=== PATIENT | female | born 1945 | race Hispanic/Latino ===

== ENCOUNTER 2018-04-22 07:31 | Inpatient (IN) | payer MEDICARE ==
[~2018-04-22] VITALS: Ht 154.9 cm; Wt 49.5 kg
[~2018-04-22 07:31] MED LIST: AMOXICILLIN500 M1 PO; ANASTROZOLE1 MG PO; LEVOTHYROXINE50 MCG PO; LOSARTAN-HCTZ1 EAC2 PO; METOPROLOL SUC100 MG PO; OXAPROZIN600 MG PO; SIMVASTATIN40 MG PO
[2018-04-22] MEDS ORDERED: SODIUM CHLORIDE 0.9% 1000ML 1,000 ML IV STA (07:56)
[2018-04-22] MEDS ORDERED: ASPIRIN 81 MG CHEW TAB PO ONE (08:00)
[2018-04-22 08:12] LABS: BASOPHILS % 0.3 % (0.0-1.0); EOSINOPHILS # (AUTO) 0.1 (0.0-0.4); EOSINOPHILS % 0.8 % (0.0-6.0); HEMATOCRIT 38.8 % (34.2-44.1); HEMOGLOBIN 12.8 g/dL (12.0-16.0); LYMPHOCYTES # (AUTO) 0.9 (1.0-3.2); LYMPHOCYTES % 8.5 % (18.0-39.1); MEAN CORPUSCULAR HEMOGLOBIN 32.2 pg (28-32); MEAN CORPUSCULAR VOLUME 97.7 fL (81-99); MONOCYTES # (AUTO) 1.4 (0.2-0.8); MONOCYTES % 13.1 % (4.4-11.3); NEUTROPHILS # (AUTO) 8.3 (2.1-6.9); PLATELET COUNT 156 x10e3/uL (140-360); RED BLOOD COUNT 3.97 x10e6/uL (3.6-5.1); RED CELL DISTRIBUTION WIDTH 13.2 % (11.7-14.4)
[2018-04-22 08:19] LABS: INR 1.27; PARTIAL THROMBOPLASTIN TIME 28.4 seconds (23.8-35.5); PROTHROMBIN TIME 14.9 seconds (11.9-14.5)
[2018-04-22 08:29] LABS: ALANINE AMINOTRANSFERASE 33 IU/L (0-55); ALBUMIN 3.5 g/dL (3.5-5.0); ALBUMIN/GLOBULIN RATIO 1.2 (0.8-2.0); ALKALINE PHOSPHATASE 99 IU/L (40-150); AMYLASE 52 U/L (25-125); ANION GAP 11.3 mmol/L (8-16); BLOOD UREA NITROGEN 16 mg/dL (7-26); BUN/CREATININE RATIO 17 (6-25); CALCIUM 9.5 mg/dL (8.4-10.2); CARBON DIOXIDE 30 mmol/L (22-29); CHLORIDE 99 mmol/L (98-107); CREATINE KINASE 60 IU/L (29-168); CREATININE, SERUM 0.95 mg/dL (0.57-1.11); EST GLOMERULAR FILTRATION RATE 58 ML/MIN (60-); GLUCOSE 128 mg/dL (74-118); LIPASE 13 U/L (8-78); POTASSIUM 3.3 mmol/L (3.5-5.1); SODIUM 137 mmol/L (136-145)
--- NOTE | 2018-04-22 08:52 | Diagnostic Imaging Report ---
PROCEDURE:GALLBLADDER ULTRASOUND COMPARISON:None. INDICATION:RUQ Pain TECHNIQUE:Jaramillo scale color Doppler ultrasound gallbladder FINDINGS: Right liver span 15.1 cm. Normal echogenicity. Portal vein diameter 0.7 cm; normal flow direction. Distended gallbladder containing calcified stones and sludge. Wall thickness 0.4 cm. Common bile duct diameter 0.5 cm. Equivocal sonographic Alcaraz sign given pain throughout the procedure. CONCLUSION: Mild gallbladder wall thickening in the setting of stones and sludge, in addition to right upper quadrant pain, is suspicious for early acute cholecystitis. Dictated by: lEkin Russ M.D. on 04/22/2018 at 8:54 Electronically approved by: Elkin Russ M.D. on 04/22/2018 at 8:54
[2018-04-22 09:26] LABS: CLARITY,URINE CLOUDY (CLEAR); COLOR,URINE AMBER (YELLOW)
[2018-04-22 09:27] LABS: BILIRUBIN,URINE 1+ (NEGATIVE); KETONES,URINE NEGATIVE (NEGATIVE); LEUKOCYTE ESTERASE ,URINE 2+ (NEGATIVE); NITRITE,URINE POSITIVE (NEGATIVE); PROTEIN,URINE DIPSTICK 1+ (NEGATIVE); URINE UROBILINOGEN 1 mg/dL (0.2 - 1)
[2018-04-22 09:33] LABS: BACTERIA,URINE MODERATE /HPF; EPITHELIAL CELLS,URINE RARE /LPF; RBC,URINE 0-5 /HPF (0-5)
[2018-04-22] MEDS ORDERED: FENTANYL CITRATE/PF 100MCG/2 ML INJ IV ONE ×2 (10:00→10:30)
[2018-04-22] MEDS ORDERED: PIPER-TAZ 3.375 GM 50 ML IV ONE (10:00)
[2018-04-22] MEDS: SODIUM CHLORIDE 0.9% 1000ML 1,000 ML IV SCH ×2 (10:27→21:08)
[2018-04-22] MEDS ORDERED: IBUPROFEN400 MG PO (10:57)
[2018-04-22] MEDS ORDERED: NORCO 5-325 TA1 EACH PO (10:59)
[2018-04-22 11:29] VITALS: BP 165/70
[2018-04-22 11:54] VITALS: BP 165/70
[2018-04-22] MEDS: ONDANSETRON HCL INJ 2 MG/ML VIAL IV PRN ×2 (12:27→20:50)
[2018-04-22] MEDS ORDERED: PIPER-TAZ 3.375 GM / NS 50ML IV SCH (14:00)
[2018-04-22 16:00] VITALS: BP 132/62
[2018-04-22] MEDS: PIPER-TAZ 3.375 GM 50 ML IV SCH (18:48)
[2018-04-22 20:00] VITALS: BP 149/65
[2018-04-22] MEDS: HYDROMORPHONE 1MG/1ML INJ IV PRN (20:50)
[2018-04-22 21:00] VITALS: BP 115/56
--- NOTE | 2018-04-22 23:08 | History and Physical ---
DATE OF SERVICE: April 22, 2018 TIME: 2:50 p.m. PRIMARY CARE PHYSICIAN: Dr. Stevenson ONCOLOGIST: Dr. Howard CHIEF COMPLAINT: Abdominal pain, nausea, and vomiting. HISTORY OF PRESENT ILLNESS: This is a 73-year-old woman with the history of right breast cancer and diagnosed in 2012 and recurrence in 2018 with metastatic lesions to the lower back, now developing right-sided abdominal pain with nausea and vomiting. Patient came to the hospital for further evaluation and management. PAST MEDICAL HISTORY: Hypertension, hyperlipidemia, right breast cancer diagnosed in 2013 without mastectomy, but having undergone chemotherapy, recurrence of breast cancer in 2018 with metastatic lesion to the lower back, diabetes mellitus, type 2. PAST SURGICAL HISTORY: Shoulder, breast biopsy. ALLERGIES: PER ELECTRONIC MEDICAL RECORD. FAMILY HISTORY/SOCIAL HISTORY: Patient is , has 4 children. No alcohol, illicits or cigarettes. MEDICATIONS: Per electronic medical record. REVIEW OF SYSTEMS: Denies any dizziness, chest pain. PHYSICAL EXAMINATION VITAL SIGNS: Reviewed. GENERAL: A tired-appearing woman resting in bed. HEENT: Anicteric. Pupils respond to light. No oral lesions. CARDIOVASCULAR: Normal S1, S2. Without murmurs. ABDOMEN: Soft, nondistended. Right upper quadrant is tender, positive Alcaraz sign. EXTREMITIES: No edema or calf tenderness. NEUROLOGICAL: Alert and appropriate. Moving all extremities. SKIN: Dry. PSYCHIATRIC: Normal affect. LABS: Reviewed. MEDICATIONS: Reviewed. ASSESSMENT AND PLAN: A 73-year-old woman. 1. Acute cholelithiasis. There is gallbladder wall thickening and sludge. Surgical consultation. N.p.o. status. 2. Hypertension, treated with p.r.n. antihypertensive medication. 3. Diabetes mellitus, type 2. Obtain hemoglobin A1c and lipid panel. 4. Hypokalemia. Replace and recheck. 5. Acute kidney injury. Hydrate. 6. Urinary tract infection. Treated with antibiotics and follow up culture of urine. Continue IV Zosyn. 7. Hypothyroidism. Use IV Synthroid. 8. Hyperlipidemia. Hold statin at this time. 9. Prophylaxis. Will use sequential compression device and Pepcid. 10. Disposition. N.p.o. status. Possible laparoscopic cholecystectomy tomorrow. Job#: [id number] CQ
[2018-04-23] VITALS (8 sets, daily range): BP systolic 95–139; BP diastolic 51–69
--- NOTE | 2018-04-23 00:35 | Consultation ---
DATE OF CONSULTATION: April 22, 2018 CHIEF COMPLAINT: Abdominal pain and vomiting. HISTORY OF PRESENT ILLNESS: Patient is a 73-year-old female with several-day history of epigastric abdominal pain radiating to the back with intractable vomiting. The patient denied fever, chills or diarrhea. The patient has history of metastatic breast cancer to the spine and had completed radiation treatment approximately 4 weeks ago. PAST MEDICAL HISTORY: Positive for hypertension, metastatic breast cancer. SURGICAL HISTORY: Positive for mastectomy. ALLERGIES: SHE IS ALLERGIC TO MORPHINE AND BETA CAROTENE. SOCIAL HABITS: No smoking or alcohol abuse. REVIEW OF SYSTEMS: No chest pain or shortness of breath. EXAM VITALS: T-max 100.9. Vital signs stable. GENERAL: She is awake, alert, in moderate discomfort. HEENT: Sclerae nonicteric. NECK: Supple. LUNGS: Clear. HEART: Regular rate and rhythm. ABDOMEN: Soft with some tenderness in the right upper quadrant with guarding, but no rebound. EXTREMITIES: Without cyanosis, edema. White cell count 10.7, hemoglobin of 12. Creatinine of 0.9. Liver function test show bilirubin of 2 with alkaline phosphatase of 99, lipase is 13. Ultrasound of the gallbladder showed wall thickening of the gallbladder with stones and sludge. ASSESSMENT 1. Cholelithiasis and probable cholecystitis. 2. Mild elevated bilirubin. PLAN: MRCP to rule out bile duct stone, then proceed with cholecystectomy if negative. Job#: [id number] CQ
[2018-04-23] MEDS: PIPER-TAZ 3.375 GM 50 ML IV SCH ×3 (01:24→17:45)
[2018-04-23] MEDS: SODIUM CHLORIDE 0.9% 1000ML 1,000 ML IV SCH ×3 (02:47→17:45)
[2018-04-23] MEDS ORDERED: LEVOTHYROXINE SODIUM 100 MCG/VIAL IV SCH (06:00)
[2018-04-23 06:50] LABS: CHOL/HDL RATIO 3.5 (3.0-3.6)
[2018-04-23 07:26] LABS: MAGNESIUM 1.4 MG/DL (1.3-2.1); PHOSPHORUS 3.2 MG/DL (2.3-4.7); POTASSIUM 3.5 mmol/L (3.5-5.1)
[2018-04-23] MEDS ORDERED: SINCALIDE 3 MCG/VIAL INJ ONE (08:07)
[2018-04-23] MEDS: FAMOTIDINE 20 MG/2 ML VIAL IV SCH ×2 (09:22→17:00)
[2018-04-23] MEDS: VANCOMYCIN 1GM/NS 250 ML 250 ML IV SCH (11:10)
[2018-04-23] MEDS ORDERED: PROPOFOL IV EMULSION 10 MG/ML 20 ML VIAL ONE (12:48)
[2018-04-23] MEDS ORDERED: DEXAMETHASONE SOD PHOS INJ 4 MG/ML VIAL ONE (12:48)
[2018-04-23] MEDS ORDERED: NEOSTIGMINE 5 MG/5ML SYR ONE (12:48)
[2018-04-23] MEDS ORDERED: SEVOFLURANE INHAL SOLN 250 ML PEN BTL ONE (12:48)
[2018-04-23] MEDS ORDERED: LIDOCAINE HCL 2% LOCAL INJ 5 ML SDV VIAL INJ ONE (12:48)
[2018-04-23] MEDS ORDERED: ROCURONIUM BROMIDE 10 MG/ML 5ML VIAL ONE (12:48)
[2018-04-23] MEDS ORDERED: ONDANSETRON HCL INJ 2 MG/ML VIAL ONE (12:48)
[2018-04-23] MEDS ORDERED: GLYCOPYRROLATE INJ 1MG/ 5 ML SYR ONE (12:48)
[2018-04-23] MEDS ORDERED: FENTANYL CITRATE/PF 100MCG/2 ML INJ ONE (13:19)
[2018-04-23] MEDS ORDERED: MIDAZOLAM HCL 2 MG/2 ML VIAL ONE (13:19)
--- NOTE | 2018-04-23 17:20 | Diagnostic Imaging Report ---
Hepatobiliary Scan with Gallbladder Ejection Fraction Clinical information: 73 F with cholelithiasis and abdominal pain Technique: Following intravenous administration of 6.5 millicuries of Tc-99m mebrofenin, dynamic images of the abdomen in the anterior projection were obtained through 30 minutes. Sincalide (CCK analog) 1.2 micrograms was administered intravenously over 30 minutes with additional imaging for determination of gallbladder ejection fraction. Discussion: Perfusion of the liver is normal. Extraction of tracer by the liver parenchyma is normal. Tracer appears promptly within the biliary tract. The gallbladder begins to fill by 9 minutes post injection of tracer and fills adequately. Tracer is seen in the small bowel by 14 minutes. The gallbladder ejection fraction with sincalide is 18% (normal greater than 40%). Impression: 1. Filling of the gallbladder excludes acute cystic duct obstruction/acute cholecystitis. 2. The decreased gallbladder ejection fraction of 18% supports the clinical diagnosis of chronic cholecystitis/gallbladder dyskinesia. Signed by: Dr. Anuradha Nguyen M.D. on 04/23/2018 5:17 PM
[2018-04-23] MEDS ORDERED: BUPIVACAINE 0.5%/EPI 30 ML SDV INJ ONE (18:26)
[2018-04-23] MEDS ORDERED: HYDROMORPHONE 1MG/1ML INJ ONE (19:48)
--- NOTE | 2018-04-23 20:01 | Consultation ---
DATE OF CONSULTATION: PHYSICAL EXAMINATION: NO DICTATION, length 0 minutes 4 seconds. Job#: [id number] EV
[2018-04-24] VITALS (8 sets, daily range): BP systolic 116–158; BP diastolic 57–80
--- NOTE | 2018-04-24 01:09 | Operative Report ---
DATE OF PROCEDURE: April 23, 2018 PREOPERATIVE DIAGNOSIS: Cholecystitis. POSTOPERATIVE DIAGNOSIS: Cholecystitis. OPERATIVE PROCEDURE: Laparoscopic cholecystectomy. ANESTHESIA: General, Dr. Clemons (sp?). INDICATIONS: Vefpphl-gpsik-gxps-old female with 2-day history of pain in epigastric, right upper quadrant with nausea. Ultrasound showed gallstones with distention of the gallbladder. HIDA scan showed decreased ejection fraction of 18%. The patient has consented for laparoscopic cholecystectomy with all attendant risks discussed. PROCEDURE FINDINGS: Cholecystitis with small pigmented stone. DESCRIPTION OF THE PROCEDURE: The patient was brought to the OR, intubated. Abdomen prepped with alcohol and draped in sterile fashion. Infraumbilical incision was made and a 10-mm port inserted. Insufflation then begun. Under direct vision, other port sites placed in the mid epigastric and right upper quadrant. Gallbladder was chronically inflamed and distended. Fundus retracted in cephalad direction, neck of the gallbladder retracted laterally. With blunt and sharp dissection, the cystic artery and cystic duct isolated and the junction with common bile duct was seen before triple-clipping the cystic duct 1 cm away from the junction and cystic duct divided between clips. Cystic artery likewise controlled with clips and divided. Gallbladder detached from the liver with cautery and taken out through the umbilical port site. Operative field was irrigated, hemostasis achieved. All ports removed under direct vision. Fascia closure with #0 Vicryl, skin was closed with subcuticular stitch. Patient was extubated and transported to recovery room in guarded condition. Estimated blood loss 5 mL. Job#: [id number]
[2018-04-24] MEDS: PIPER-TAZ 3.375 GM 50 ML IV SCH ×3 (02:21→18:00)
[2018-04-24] MEDS: SODIUM CHLORIDE 0.9% 1000ML 1,000 ML IV SCH ×3 (03:21→18:00)
[2018-04-24] MEDS: LEVOTHYROXINE SODIUM 100 MCG/VIAL IV SCH (06:15)
[2018-04-24 06:46] LABS: BASOPHILS % 0.2 % (0.0-1.0); HEMATOCRIT 38.2 % (34.2-44.1); HEMOGLOBIN 12.6 g/dL (12.0-16.0); LYMPHOCYTES # (AUTO) 0.5 (1.0-3.2); LYMPHOCYTES % 4.5 % (18.0-39.1); MEAN CORPUSCULAR HEMOGLOBIN 32.5 pg (28-32); MEAN CORPUSCULAR VOLUME 98.5 fL (81-99); MONOCYTES # (AUTO) 0.6 (0.2-0.8); MONOCYTES % 6.2 % (4.4-11.3); NEUTROPHILS % 88.5 % (38.7-80.0); PLATELET COUNT 136 x10e3/uL (140-360); RED BLOOD COUNT 3.88 x10e6/uL (3.6-5.1)
[2018-04-24 07:00] LABS: ANION GAP 16.6 mmol/L (8-16); BLOOD UREA NITROGEN 18 mg/dL (7-26); BUN/CREATININE RATIO 24 (6-25); CALCIUM 8.7 mg/dL (8.4-10.2); CARBON DIOXIDE 17 mmol/L (22-29); CHLORIDE 109 mmol/L (98-107); CREATININE, SERUM 0.76 mg/dL (0.57-1.11); EST GLOMERULAR FILTRATION RATE > 60 ML/MIN (60-); GLUCOSE 106 mg/dL (74-118); POTASSIUM 3.6 mmol/L (3.5-5.1); SODIUM 139 mmol/L (136-145)
[2018-04-24] MEDS: FAMOTIDINE 20 MG/2 ML VIAL IV SCH ×2 (09:00→17:00)
[2018-04-24] MEDS: VANCOMYCIN 1GM/NS 250 ML 250 ML IV SCH (09:00)
[2018-04-24] MEDS: HYDROMORPHONE 1MG/1ML INJ IV PRN ×2 (12:52→20:22)
[2018-04-24] MEDS: ONDANSETRON HCL INJ 2 MG/ML VIAL IV PRN (12:52)
[2018-04-25 00:37] VITALS: BP 111/56
[2018-04-25] MEDS: PIPER-TAZ 3.375 GM 50 ML IV SCH ×3 (01:58→17:08)
[2018-04-25] MEDS: SODIUM CHLORIDE 0.9% 1000ML 1,000 ML IV SCH ×4 (02:00→17:08)
[2018-04-25] MEDS: LEVOTHYROXINE SODIUM 100 MCG/VIAL IV SCH (05:29)
[2018-04-25 05:31] VITALS: BP 123/67
[2018-04-25 08:00] VITALS: BP_SYST 123; BP_SYST 134; BP_DIAS 59; BP_DIAS 67
[2018-04-25] MEDS: VANCOMYCIN 1GM/NS 250 ML 250 ML IV SCH (09:00)
[2018-04-25] MEDS: FAMOTIDINE 20 MG/2 ML VIAL IV SCH ×2 (09:00→16:21)
[2018-04-25 12:00] VITALS: BP 149/83
[2018-04-25 13:33] LABS: BASOPHILS % 0.1 % (0.0-1.0); EOSINOPHILS # (AUTO) 0.2 (0.0-0.4); EOSINOPHILS % 2.3 % (0.0-6.0); HEMATOCRIT 34.3 % (34.2-44.1); HEMOGLOBIN 11.3 g/dL (12.0-16.0); LYMPHOCYTES # (AUTO) 0.7 (1.0-3.2); LYMPHOCYTES % 9.2 % (18.0-39.1); MEAN CORPUSCULAR HEMOGLOBIN 32.3 pg (28-32); MEAN CORPUSCULAR HGB CONC 32.9 g/dL (31-35); MONOCYTES # (AUTO) 0.9 (0.2-0.8); MONOCYTES % 12.1 % (4.4-11.3); NEUTROPHILS # (AUTO) 5.7 (2.1-6.9); NEUTROPHILS % 75.9 % (38.7-80.0); PLATELET COUNT 120 x10e3/uL (140-360); RED CELL DISTRIBUTION WIDTH 13.2 % (11.7-14.4)
[2018-04-25 16:00] VITALS: BP 141/73
[2018-04-25 19:30] VITALS: BP 143/75
[2018-04-26] VITALS (9 sets, daily range): BP systolic 146–171; BP diastolic 79–87
[2018-04-26] MEDS: SODIUM CHLORIDE 0.9% 1000ML 1,000 ML IV SCH ×3 (02:11→18:00)
[2018-04-26] MEDS: PIPER-TAZ 3.375 GM 50 ML IV SCH ×3 (02:21→18:37)
[2018-04-26] MEDS: LEVOTHYROXINE SODIUM 100 MCG/VIAL IV SCH (05:28)
--- NOTE | 2018-04-26 07:48 | Progress Note ---
DATE: April 23, 2018 TIME: 7:15 a.m. OVERNIGHT: No events. REVIEW OF SYSTEMS: Denies any chest pain or shortness of breath. PHYSICAL EXAMINATION VITAL SIGNS: Reviewed. GENERAL: A tired-appearing woman resting in bed. HEENT: Anicteric. CARDIOVASCULAR: Normal S1 and S2. LUNGS: Moderate breath sounds. ABDOMEN: Soft and nondistended. Mild tenderness in the right upper quadrant. EXTREMITIES: No edema. SKIN: Dry. PSYCHIATRIC: Normal affect. LABS: Reviewed. MEDICATIONS: Reviewed. ASSESSMENT: A 73-year-old woman with: 1. Acute cholelithiasis. 2. Hypertension. 3. Hypokalemia. 4. Acute kidney injury. 5. Urinary tract infection. 6. Hypothyroidism. 7. Hyperlipidemia. PLAN 1. Continue supportive care. 2. Continue pain control. 3. Follow up surgical planning. 4. Follow up hemoglobin A1c and lipid panel. 5. Continue broad-spectrum antibiotics. 6. Continue IV fluids. Job#: [id number] [place]
--- NOTE | 2018-04-26 08:02 | Progress Note ---
DATE: April 26, 2018 TIME: 7:18 a.m. OVERNIGHT: No chest pain or shortness of breath. REVIEW OF SYSTEMS: Denies any dizziness or chest pain. PHYSICAL EXAMINATION VITAL SIGNS: Reviewed. GENERAL: A tired-appearing woman resting in bed. HEENT: Anicteric. CARDIOVASCULAR: Normal S1 and S2. LUNGS: Moderate breath sounds. ABDOMEN: Soft, nontender and nondistended. EXTREMITIES: No edema or calf tenderness. NEUROLOGICAL: Alert and oriented times 3. Moving all extremities. SKIN: Dry. PSYCHIATRIC: Normal affect. LABS: Reviewed. MEDICATIONS: Reviewed. ASSESSMENT: A 73-year-old woman with: 1. Acute cholelithiasis. 2. Hypertension. 3. Diabetes mellitus, type 2. 4. Hypokalemia. 5. Acute kidney injury. 6. Urinary tract infection with Escherichia coli. 7. Coagulase-negative staphylococcus in 1 of 2 blood cultures. 8. Hypothyroidism. 9. Hyperlipidemia. PLAN 1. Follow up repeat blood cultures at 48 hour denia. 2. Follow up infectious disease consultation. 3. Continue broad-spectrum antibiotics. 4. Continue diet. 5. Hemoglobin A1c was 5.4 and LDL 78. Job#: [id number] HI
--- NOTE | 2018-04-26 08:02 | Progress Note ---
DATE: April 24, 2018 TIME: 7:15 a.m. OVERNIGHT: Patient underwent laparoscopic cholecystectomy. Had gram-positive cocci in the blood. REVIEW OF SYSTEMS: Denies any chest pain or shortness of breath. PHYSICAL EXAMINATION VITAL SIGNS: Reviewed. GENERAL: A tired-appearing woman resting in bed. HEENT: Anicteric. CARDIOVASCULAR: Normal S1 and S2. LUNGS: Moderate breath sounds. ABDOMEN: Soft and nondistended. She has laparoscopic sites with dressing in place. EXTREMITIES: No edema. SKIN: Dry. PSYCHIATRIC: Normal affect. LABS: Reviewed. MEDICATIONS: Reviewed. ASSESSMENT: A 73-year-old woman with: 1. Acute cholelithiasis: Status post laparoscopic cholecystectomy. 2. Hypertension. 3. Diabetes mellitus, type 2. 4. Gram-positive cocci in the blood. 5. Acute kidney injury. 6. Hypokalemia. 7. Urinary tract infection. 8. Hypothyroidism. 9. Hyperlipidemia. PLAN 1. Continue broad-spectrum antibiotics and follow up blood cultures and urine cultures. 2. Pain is controlled. 3. Diet per surgical team. Job#: [id number] SD
--- NOTE | 2018-04-26 08:04 | Progress Note ---
DATE: April 25, 2018 TIME: 7:15 a.m. OVERNIGHT: Patient had positive blood culture and urine culture. REVIEW OF SYSTEMS: Denies any chest pain. PHYSICAL EXAMINATION VITAL SIGNS: Reviewed. GENERAL: A tired-appearing woman resting in bed. HEENT: Anicteric. CARDIOVASCULAR: Normal S1 and S2. LUNGS: Moderate breath sounds. ABDOMEN: Soft and nondistended. Minimal discomfort in the right upper quadrant. EXTREMITIES: No edema. SKIN: Dry. PSYCHIATRIC: Normal affect. LABS: Reviewed. MEDICATIONS: Reviewed. ASSESSMENT: A 73-year-old woman. 1. Acute cholelithiasis, status post laparoscopic cholecystectomy. 2. Hypertension. 3. Diabetes mellitus, type 2. 4. Acute kidney injury. 5. Urinary tract infection with Escherichia coli. 6. Coagulase-negative staphylococcus in 1 of 2 blood cultures. 7. Hypothyroidism. 8. Hyperlipidemia. PLAN 1. Continue antibiotics. 2. Infectious disease consultation. 3. Recheck blood cultures now. 4. Will need to continue hospitalization until cultures are negative for 48 hours. Job#: [id number]
[2018-04-26] MEDS: VANCOMYCIN 1GM/NS 250 ML 250 ML IV SCH (08:43)
[2018-04-26] MEDS: FAMOTIDINE 20 MG/2 ML VIAL IV SCH ×2 (08:43→18:37)
[2018-04-26] MEDS: METOPROLOL SUCCINATE 50 MG TAB XL PO SCH (12:00)
--- NOTE | 2018-04-26 17:56 | Consultation ---
DATE OF CONSULTATION: April 26, 2018 INFECTIOUS DISEASE CONSULTATION ATTENDING PHYSICIAN: Dr. Fam Horan. REASON FOR CONSULTATION: Positive blood culture. Thank you, Dr. Horan, for asking me to see this patient. HISTORY: The patient is a 73-year-old woman referred for positive blood culture. She was admitted through the emergency department with acute cholecystitis with obstruction and cholelithiasis. The patient presented to the emergency department on April 22, 2018, with right upper quadrant abdominal pain. There was no fever, nausea, vomiting or diarrhea. In the emergency department, she was noted to have normal vital signs. Initial laboratory studies showed blood leukocyte count of 10,760 with 77% neutrophils, AST 43, ALT 33, alk phos 99 and total bilirubin 2. Gallbladder ultrasound showed mild bladder wall thickening in the setting of stones and sludge. The patient was evaluated by the surgical service with HIDA scan which showed decreased gallbladder ejection fraction of 18, suggestive of chronic cholecystitis. The patient underwent laparoscopic cholecystectomy on April 23, 2018. Unfortunately, the blood culture collected in the emergency room on April 22, 2018, grew coagulase-negative staph from one of her bottles. Currently the patient feels better and has no new complaint. She is tolerating oral feed. The patient recently received radiation therapy for breast cancer metastatic to the lumbar spine. PAST MEDICAL HISTORY: Hypertension, hyperlipidemia, hypothyroidism, breast cancer metastatic to lumbar spine. PAST SURGICAL HISTORY: Right shoulder surgery and bladder suspension. ALLERGIES: NO KNOWN DRUG ALLERGIES. MEDICATIONS: The current antibiotics are Zosyn 3.375 g IV piggyback q.8 h. and vancomycin 1 g IV piggyback q.24 h. IMMUNIZATION: She received pneumococcal vaccination prior to admission. FAMILY HISTORY: Noncontributory. SOCIAL HISTORY: No alcohol or tobacco use. REVIEW OF SYSTEMS: As per history of present illness. PHYSICAL EXAMINATION GENERAL: No acute distress and does not appear toxic. VITAL SIGNS: T-max 98.9, pulse 60, respiratory rate 18, blood pressure 164/81. Weighing 109 pounds. HEENT: Normocephalic. There is no icterus or injection of conjunctivae. There is no ear or nasal discharge. Moist oral mucosa. No pharyngeal erythema or exudate. NECK: Supple. No lymphadenopathy or meningismus. LUNGS: Clear to auscultation bilaterally. HEART: Normal S1 and S2. Regular. ABDOMEN: Incisions are clean. Soft. EXTREMITIES: There is no edema, clubbing or cyanosis. SKIN: There is no acute erythema. SENIOR SOFTWARE ENGINEERING MANAGER: Awake, alert and oriented to person, place and time. Nonfocal. LABORATORY AND DIAGNOSTICS: April 25, 2018: WBC 9540, hemoglobin 11.3, platelet 120,000. Neutrophil 75.9, lymph 9.2, mono 12.1, eosinophil 2.3, basophil 0.1. BUN 18, creatinine 0.76. A urine culture collected on April 22, 2018, in the emergency room for yet unknown indication grew E. coli. IMPRESSION 1. Positive blood culture represents a skin contamination. 2. Status post laparoscopic cholecystectomy. 3. Metastatic breast cancer. PLAN 1. Stop antibiotics and monitor. 2. Okay to discharge from infectious disease point of view. Job#: [id number] EV
[2018-04-27] VITALS: BP 150/77
[2018-04-27] MEDS: SODIUM CHLORIDE 0.9% 1000ML 1,000 ML IV SCH (02:00)
[2018-04-27] MEDS: PIPER-TAZ 3.375 GM 50 ML IV SCH (02:36)
[2018-04-27 04:00] VITALS: BP 165/77
[2018-04-27] MEDS ORDERED: LEVOTHYROXINE SODIUM 50 MCG TAB PO SCH (06:00)
[2018-04-27] MEDS ORDERED: SENNA LAX8.6 MG PO (07:26)
[2018-04-27 08:09] VITALS: BP 156/83
[2018-04-27] MEDS: METOPROLOL SUCCINATE 50 MG TAB XL PO SCH (08:28)
[2018-04-27] MEDS ORDERED: NON-FORMULARY MEDICATION (Metoprolol Succinate 100 MG) PO SCH (09:00)
--- NOTE | 2018-04-27 13:12 | Discharge Summary ---
DISCHARGE DIAGNOSES 1. Acute cholelithiasis. 2. Blood contamination with coagulase-negative staphylococcus in 1 or 2 blood cultures. 3. Hypertension. 4. Diabetes mellitus type 2. 5. Hypokalemia. 6. Acute kidney injury. 7. Urinary tract infection with Escherichia coli. 8. Hyperlipidemia. SECONDARY DIAGNOSIS: Hypothyroidism. CHIEF COMPLAINT: Abdominal pain. HISTORY OF PRESENT ILLNESS: A 73-year-old woman with abdominal pain. Please refer to the H and P for further details. HOSPITAL COURSE: Patient found to have acute cholelithiasis and underwent laparoscopic cholecystectomy. Urinary tract infection positive for E. coli, treated with antibiotics. Had coagulase-negative staph in 1 of 2 bottles of blood cultures, this was a contaminant. Infectious Disease assisted in management. Patient subsequently transitioned home. DISCHARGE MEDICATIONS: Per electronic medical record. FOLLOW UP: With primary care doctor in 1 week. CONDITION ON DISCHARGE: Stable and improved. DISCHARGE LOCATION: Home. [address] MD Job#: [id number] DG
== END 2018-04-27 10:24 | disposition home or self-care (01) | DRG 418 ==
LOC: ER 07:31 → ERHOLD 10:10 → MED/SURG2 11:19
PROVIDERS: ADMIT Internal Medicine; ATTEND Internal Medicine
PROC: 0FT44ZZ Resection of Gallbladder, Percutaneous Endoscopic Approach (ICD-10-PCS; principal; 2018-04-23 18:37)
DX: K80.12 Calculus of gallbladder with acute and chronic cholecystitis without obstruction (principal); N17.9 Acute kidney failure, unspecified; N39.0 Urinary tract infection, site not specified; C79.51 Secondary malignant neoplasm of bone; I10 Essential (primary) hypertension; B96.20 Unspecified Escherichia coli [E. coli] as the cause of diseases classified elsewhere; E03.9 Hypothyroidism, unspecified; C50.919 Malignant neoplasm of unspecified site of unspecified female breast; E11.9 Type 2 diabetes mellitus without complications; E87.6 Hypokalemia
CPT/HCPCS: 36415; 76705; 78227; 80048; 80053; 80061; 81001; 81003; 82150; 82550; 82553; 82948; 83036; 83690; 83735; 83880; 84100; 84132; 84484; 85025; 85610; 85730; 87040; 87071; 87086; 87186; 87205; 88304; 93005; 96361; 99284; A9537; J1100; J1170; J2001; J2250; J2405; J2543; J2805; J3370; J7030